=== PATIENT | female | born 1995 | race Two or more races ===

== ENCOUNTER 2017-03-19 10:52 | Emergency (ER) | payer MEDICAID ==
[~2017-03-19] VITALS: Ht 160 cm; Wt 68.0 kg
[2017-03-19 10:55] VITALS: BP 115/65
== END 2017-03-19 11:20 | disposition home or self-care (01) ==
LOC: ER 10:55
DX: O03.4 Incomplete spontaneous abortion without complication (principal); Z86.19 Personal history of other infectious and parasitic diseases
CPT/HCPCS: 99281; A4606; Z7610; Z7502